=== PATIENT | male | born 1990 | race Caucasian/White ===

== ENCOUNTER 2023-06-19 01:24 | Emergency (ER) | payer BC ==
[~2023-06-19] VITALS: Ht 165.1 cm; Wt 56.7 kg
[2023-06-19] MEDS: TRANEXAMIC ACID 1,000 MG/10 ML VIAL IR ONE (02:38)
[2023-06-19 04:53] VITALS: BP 110/80; TEMP 98; O2SAT 98
== END 2023-06-19 04:53 | disposition home or self-care (01) ==
LOC: ER 01:32
DX: K13.79 Other lesions of oral mucosa (principal); K91.840 Postprocedural hemorrhage of a digestive system organ or structure following a digestive system procedure
CPT/HCPCS: A4606; A4663